=== PATIENT | male | born 1970 | race Caucasian/White ===

== ENCOUNTER 2017-03-26 12:35 | Emergency (ER) | payer BC ==
[2017-03-26 13:06] VITALS: BP 137/84; PULSE 89; RESP 18; TEMP 97.5
[2017-03-26] MEDS ORDERED: ORPHENADRINE 30 MG/ML 2 ML VIAL IM STA (13:32)
[2017-03-26] MEDS ORDERED: methylPREDNISolone SOD SUCCI 125 MG/2 ML VIAL IM ONE (13:32)
[2017-03-26] MEDS ORDERED: KETOROLAC 60 MG/2 ML VIAL IM STA (13:32)
--- NOTE | 2017-03-26 13:32 | ED ---
Back Pain HPI - General Chief Complaint: Back Pain/Injury Stated Complaint: Back Pain Time Seen by Provider: 03/26/17 13:09 Source: patient Limitations: no limitations - History of Present Illness Initial Comments: 46-year-old male patient presents to emergency department today for evaluation of lower back pain with radiation down the right leg. Patient states that this started last . States he was seen at urgent care and given a Medrol Dosepak and a muscle relaxer take at night, states that his symptoms haven't improved. He states that they seem to be worsening in fact. He states that the pain is low in his mid back over the "tailbone area". He states that the pain goes down his right buttock and down the back of his leg to his knee. He states he has had this one time in the past. He reports some tingling to his right great toe. He denies any loss of bowel or bladder control. Denies any saddle anesthesia. He denies any discoloration to his legs. Patient denies any recent fever, chills, shortness breath, chest pain, abdominal pain, nausea, vomiting, diarrhea, constipation, back pain, numbness, tingling, headache, visual changes, hematuria, dysuria, urinary frequency, urinary urgency, or any other complaints. - Related Data Home Medications Medication Instructions Recorded Confirmed Citalopram Hydrobromide [CeleXA] 40 mg PO HS 03/12/14 03/26/17 Previous Rx's Medication Instructions Recorded Naproxen [Naprosyn] 500 mg PO Q12HR #24 tab 03/12/14 Acetaminophen-Codeine 300-30mg 1 tab PO Q4H PRN #20 tablet 03/26/17 [Tylenol #3] Cyclobenzaprine [Flexeril] 10 mg PO TID #15 tab 03/26/17 predniSONE 50 mg PO DAILY #7 tablet 03/26/17 Allergies Allergy/AdvReac Type Severity Reaction Status Date / Time No Known Allergies Allergy Verified 03/26/17 13:41 Review of Systems ROS Statement: Those systems with pertinent positive or pertinent negative responses have been documented in the HPI. ROS Other: All systems not noted in ROS Statement are negative. Past Medical History Past Medical History: No Reported History History of Any Multi-Drug Resistant Organisms: None Reported Past Surgical History: No Surgical Hx Reported Past Psychological History: Anxiety, Depression Smoking Status: Never smoker Past Alcohol Use History: Occasional Past Drug Use History: None Reported General Exam Limitations: no limitations General appearance: alert, in no apparent distress, other (Well-developed, well- nourished adult male patient in no acute distress. Vital signs upon presentation temperature 97.5F, pulse 89, respirations 18, blood pressure 137/ 84, pulse ox 96% on room air.) Eye exam: Present: normal appearance, PERRL, EOMI. Absent: scleral icterus, conjunctival injection, periorbital swelling Neck exam: Present: normal inspection. Absent: tenderness, meningismus, lymphadenopathy Respiratory exam: Present: normal lung sounds bilaterally. Absent: respiratory distress, wheezes, rales, rhonchi, stridor Cardiovascular Exam: Present: regular rate, normal rhythm, normal heart sounds. Absent: systolic murmur, diastolic murmur, rubs, gallop, clicks GI/Abdominal exam: Present: soft, normal bowel sounds. Absent: distended, tenderness, guarding, rebound, rigid Extremities exam: Present: normal inspection, full ROM, normal capillary refill , other (Strength 5/5. Pulses strong and equal bilaterally.). Absent: tenderness, pedal edema, joint swelling, calf tenderness Back exam: Present: normal inspection, full ROM, other (Positive straight leg test right. Strength 4/5 on the right, strength 5/5 on the left. Post tibial and pedal pulses intact and strong bilaterally. Skin is pink, warm, and dry.). Absent: tenderness Neurological exam: Present: alert, oriented X3, CN II-XII intact Psychiatric exam: Present: normal affect, normal mood Skin exam: Present: warm, dry, intact, normal color. Absent: rash Course Vital Signs 03/26/17 13:03 Temperature 97.5 F L Pulse Rate 89 Respiratory 18 Rate Blood Pressure 137/84 O2 Sat by Pulse 96 Oximetry Medical Decision Making - Medical Decision Making 46-year-old male patient presented for evaluation of low back pain with radiation down the right leg. Patient has had this before. Patient is neurologically intact. He will be given stronger pain medication, a course of prednisone, and muscle relaxer to take 3 times daily. He was instructed to apply warm moist heat to the area 20 minutes at a time at least 4 times per day. He is instructed once the pain improves to start doing gentle stretching exercises. He was given repeated follow-up for further evaluation of his low back. He is instructed to follow-up with his primary care physician for recheck in 1-2 days. He is instructed to return here immediately for new, worsening, or concerning symptoms. The patient verbalizes understanding and agrees this plan. Disposition Clinical Impression: Sciatica Disposition: HOME SELF-CARE Condition: Good Instructions: Sciatica (ED), Acute Low Back Pain (ED), Lower Back Exercises (ED ) Additional Instructions: Take medications as directed. Apply warm moist heat to the area 20 minutes at a time at least 4 times per day. Once pain symptoms improve start gentle stretching exercises of the low back. Follow-up with your primary care physician or orthopedics for further evaluation. Return here immediately for any new, worsening, or concerning symptoms. Prescriptions: Acetaminophen-Codeine 300-30mg [Tylenol #3] 1 tab PO Q4H PRN #20 tablet PRN Reason: Pain Cyclobenzaprine [Flexeril] 10 mg PO TID #15 tab predniSONE 50 mg PO DAILY #7 tablet Referrals: Yamil Harris MD [Primary Care Provider] - 1-2 days Alex Menon DO [Doctor of Osteopathic Medicine] - 1-2 days Time of Disposition: 13:31
== END 2017-03-26 13:50 | disposition home or self-care (01) ==
LOC: EC 12:35
DX: M54.41 Lumbago with sciatica, right side (principal); F32.9 Major depressive disorder, single episode, unspecified; Z79.899 Other long term (current) drug therapy
CPT/HCPCS: 99283; 96372 ×3; J2360; J2930; J1885